=== PATIENT | female | born 1945 | race Caucasian/White ===

== ENCOUNTER → 2018-02-03 17:38 | Outpatient (CLI) | payer MEDICARE, SELFPAY ==
[2018-02-08 11:03] LABS: HPV HC, High Risk Negative (Negative)
== END ==
PROVIDERS: Visit Provider Obstetrics & Gynecology
DX: Z12.4 Encounter for screening for malignant neoplasm of cervix (principal)
CPT/HCPCS: 87624; 88175; G0145

== ENCOUNTER → 2019-06-15 10:03 | Outpatient (CLI) | payer MEDICARE, SELFPAY ==
--- NOTE | 2019-06-15 10:19 | BD_ITS ---
STUDY: DUAL ENERGY X-RAY ABSORPTIOMETRY / DXA REASON FOR EXAM: Female, 74 years old. The patient is postmenopausal. Loss of height. TECHNIQUE: Bone Mineral Density (BMD) measurements of lumbar spine and bilateral hips were obtained. COMPARISON: None. FINDINGS: Lumbar Spine (L1-L4): g/cm2 (1.095) / T-score (-0.7) / Z-score (1.0) Findings are suggestive of normal bone density with a low fracture risk. Left Femur Total: g/cm2 (0.831) / T-score (-1.4) / Z-score (0.3) Left Femoral Neck: g/cm2 (0.699) / T-score (-2.4) / Z-score (-0.6) Right Femur Total: g/cm2 (0.885) / T-score (-1.0) / Z-score (0.7) Right Femoral Neck: g/cm2 (0.714) / T-score (-2.3) / Z-score (-0.5) BD/Dexa Bone Density Study IMPRESSION: The patient is considered osteopenic as outlined below according to World Koby Organization (WHO) criteria with a high fracture risk. Reference Information: The T-score is the number of standard deviations above or below the standard which is normal for young adults at their peak bone mineral density. The World Health Organization (WHO) interprets the T-scores as follows: Above -1 Normal bone density Between -1 and -2.5 Osteopenia Equal to / or below -2.5 Osteoporosis As a practical clinical guideline, osteopenia may be graded as follows: Mild -1 through -1.5 Moderate -1.6 through -2.0 Severe -2.1 through -2.4 The Z-score is the number of standard deviations above or below age-matched controls. A Z-score of less than -1.5 would be considered abnormal. References: 1. NIH Osteoporosis and Related Bone Diseases http://www.osteo.org 2. International Society for Clinical Densitometry http://www.iscd.org 3. National Osteoporosis Foundation http://www.nof.org Electronically Signed: Thom Schmidt, at 13:31 EDT , Service support ,
== END ==
PROVIDERS: Family Provider Family Medicine; PCP Family Medicine; Referring Provider Family Medicine; Visit Provider Family Medicine
DX: Z78.0 Asymptomatic menopausal state (principal)
CPT/HCPCS: 77080

== ENCOUNTER → 2019-09-13 15:42 | Outpatient (CLI) | payer MEDICARE, SELFPAY ==
[2017-08-24 11:50] VITALS: BMI 39.3
[2019-09-13 17:55] LABS: Erythrocyte Sedimentation Rate 27 mm/hr (0-30)
[2019-09-13 18:09] LABS: Ferritin 266 ng/mL (8-252)
[2019-09-15 15:16] LABS: Anti-Smooth Muscle ABS 9 Units (0-19); Ceruloplasmin 28.2 mg/dL (19.0-39.0)
[2019-09-15 17:07] LABS: ANTINUCLEAR ANTIBODIES DIRECT Positive (Negative); Anti-Mitochondrial AB <20.0 Units (0.0-20.0)
== END ==
LOC: MTLAB 15:44
PROVIDERS: PCP Family Medicine; Referring Provider Internal Medicine Gastroenterology; Visit Provider Internal Medicine Gastroenterology
DX: K75.9 Inflammatory liver disease, unspecified (principal)
CPT/HCPCS: 36415; 82390; 82728; 83516; 85652; 86038

== ENCOUNTER → 2020-01-09 13:57 | Outpatient (CLI) | payer MEDICARE, MEDICAID, SELFPAY ==
[2017-08-24 11:50] VITALS: BMI 39.3
[2020-01-09 18:23] LABS: AST(SGOT) 118 U/L (15-37); Alanine Aminotransfer ALT/SGPT 134 U/L (13-56); Albumin, Serum 3.3 g/dL (3.2-5.0); Alkaline Phosphatase 104 U/L (45-117); Bilirubin, Direct 0.18 mg/dL (0.00-0.30); Protein, Total 7.3 g/dL (6.4-8.2)
[2020-01-09 18:28] LABS: Hemoglobin A1c 6.5 % (4.2-6.3); International Normalized Ratio 1.1; Partial Thromboplast Time 31.8 Seconds (24.1-36.2); Prothrombin Time (Protime)PT. 13.6 SECONDS (11.7-14.9)
[2020-01-11 08:46] LABS: AFP, Tumor Marker 3.8 ng/mL (0.0-8.3)
== END ==
PROVIDERS: PCP Family Medicine; Referring Provider Internal Medicine Gastroenterology; Visit Provider Internal Medicine Gastroenterology
DX: K74.0 Hepatic fibrosis (principal); K76.0 Fatty (change of) liver, not elsewhere classified
CPT/HCPCS: 36415; 80076; 82105; 83036; 85610; 85730

== ENCOUNTER → 2021-05-09 07:31 | Outpatient (CLI) | payer MEDICARE, MEDICAID, SELFPAY ==
--- NOTE | 2021-05-09 | BRBX_PTH ---
PATIENT: MANISHA MORA LOC: [facility] U#:[id number] AGE/SX: 80/F ROOM: RE05/09/[address]: Dr. Margarita Zafar MD : 1945 BED: DIS: SPEC #: [id number] RECD: 05/09/21 11:00 STATUS: ROHIT ROSHAN #: [id number] LINDSEY: 05/09/21 00:[address]: Margarita Zafar DEPT: SURGICAL PATHOLOGY RECD BY: Santos Saleh ENTERED: 05/09/21 11:00 SP TYPE: BREAST BX OT DR: Dr. Ag Sharpe MD Tissues: Right breast, NOS Procedures: Surgery Specimen Level IV HEADER OPERATION: Right stereotactic breast biopsy PRE-OP DIAGNOSIS: Right upper inner 1 o?clock breast microcalcifications TISSUE SUBMITTED: Right breast core tissue ISCHEMIC TIME: 1 minute FIXATION TIME: 12.5 hours MICROSCOPIC DIAGNOSIS Right breast, upper inner 1 o?clock microcalcifications, stereotactic core biopsy: Hyalinized fibroadenoma with focal calcifications. Negative for atypia or malignancy. See comment. NICK:joan 05/10/2021 COMMENT Correlation with clinical, radiologic findings and appropriate follow up are necessary. MICROSCOPIC DESCRIPTION Slides are reviewed. GROSS DESCRIPTION Received is one container labeled with the patient's name and not further designated. The specimen consists of multiple irregular fragments of yellow-zhou soft tissue mixed with blood clots that in aggregate measure 5 x 3 x 0.2 cm. The specimen is totally submitted in two cassettes. / AM:joan 05/09/21 TC:1 CPT: 86401
--- NOTE | 2021-05-09 13:02 | OP.PCM_ITS ---
Report of Operation Date of Procedure: 05/09/21 Pre-Operative Diagnosis: abnormal calcifications on right breast mammograms Post-Operative Diagnosis: same Surgery/Procedure Performed:: right breast stereotactic biopsy Description of Surgical Findings:: abnormal calcifications on right breast mammograms Surgeon: Margarita Zafar Type of Anesthesia: Local (1% xylocaine) Specimen's removed: right breast tissue Estimated Blood Loss (mL): < 5 ml Fluids Replaced: none Description of Procedure: After informed consent was given, the patient was brought into the Breast Biopsy suite. Appropriate time out protocol was followed. The patient was placed in the prone position on the stereotactic biopsy table. The patient?s right breast was then placed in the opening at the head of the biopsy table. A army helicopter pilot compression mammogram was then obtained in the CC view. The suspicious radiological lesion was thus identified. Stereo pictures of the lesion were then taken for XYZ coordinates. The Mammotome biopsy stylus was then positioned where it would be entering into the patient?s breast. The skin at this site was then cleansed with a surgical skin preparation. The skin and subcutaneous tissues at this site were then infiltrated with 1% xylocaine. A small skin incision was made with an 11 blade scalpel. The biopsy stylus was then positioned into the patient?s breast at the proper coordinates of depth. Using the Mammotome vacuum-assist device, several core samples of breast tissue were obtained. A specimen mammogram was the obtained. It revealed that the abnormal calcifications were within the specimen. I reviewed this personally and concluded that the tissue sampling was adequate. A hemostatic marker clip was then placed into the biopsy cavity and a army helicopter pilot film revealed that it was properly deployed. The patient was then placed in the supine position and pressure was applied to the breast until no active bleeding was noted. Steristrips were applied to reapproximate the skin. A unilateral mammogram in the CC and MLO view were then taken which revealed that the marker clip was in the same area as the previous suspicious lesion. The patient tolerated the procedure well and was discharged from the Breast Biopsy suite in good condition. Complications none noted
== END ==
PROVIDERS: PCP Internal Medicine; Referring Provider Surgery; Visit Provider Surgery
DX: D24.1 Benign neoplasm of right breast (principal); R92.8 Other abnormal and inconclusive findings on diagnostic imaging of breast; F41.9 Anxiety disorder, unspecified; F32.9 Major depressive disorder, single episode, unspecified; M81.0 Age-related osteoporosis without current pathological fracture; G47.33 Obstructive sleep apnea (adult) (pediatric); E11.42 Type 2 diabetes mellitus with diabetic polyneuropathy; E66.01 Morbid (severe) obesity due to excess calories; Z87.891 Personal history of nicotine dependence; Z68.42 Body mass index [BMI] 45.0-49.9, adult
CPT/HCPCS: 19081; 88305; A4648

== ENCOUNTER → 2023-11-03 | Outpatient (CLI) | payer MEDICARE, MEDICAID, SELFPAY ==
--- NOTE | 2023-11-03 11:50 | US_ITS ---
STUDY: RENAL ULTRASOUND - COMPLETE REASON FOR EXAM: Female, 78 years old. Flank pain, possible UTI TECHNIQUE: Ultrasound evaluation of the kidneys was performed with real-time and static larson-scale imaging. COMPARISON: None. FINDINGS: RIGHT KIDNEY: Normal location of the right kidney, which is normal in size. The right kidney measures 9.5 x 5.2 x 6.2 cm. There is a normal cortex of the right kidney. The renal cortex measures 1.7 cm. There is no right renal mass or cyst. There is a nonobstructing 1 cm stone There is no right hydronephrosis. DISTAL RIGHT URETER: There is non-visualization of the distal right ureter. There is no demonstrated right ureterovesical junction calculus. There is a visualized right ureteral jet. LEFT KIDNEY: Normal location of the left kidney, which is normal in size. The left kidney measures 9.9 x 5.4 x 5.0 cm. There is a normal cortex of the left kidney. The renal cortex measures 1.6 cm. There is no left renal mass or cyst. There are no left renal calculi. There is no left hydronephrosis. DISTAL LEFT URETER: There is non-visualization of the distal left ureter. There is no demonstrated left ureterovesical junction calculus. There is a visualized left ureteral jet. AORTA: There is no elongation or tortuosity of the abdominal aorta. I.V.C.: The IVC is patent. BLADDER: The bladder is sonographically normal with estimated capacity 191 mL US/Kidney and Bladder IMPRESSION: No suspicious sonographic findings, nonobstructing right nephrolithiasis Electronically Signed: Fabio Hernandez MD at 9:27 EDT ,
[2023-11-03 23:39] LABS: Bedside Glucose 111 mg/dL (74-106)
== END | disposition home or self-care (01) ==
PROVIDERS: PCP Internal Medicine; Referring Provider Urology; Visit Provider Urology
DX: N39.0 Urinary tract infection, site not specified (principal); R35.1 Nocturia; N39.46 Mixed incontinence
CPT/HCPCS: 76770; 82962

== ENCOUNTER → 2025-03-03 | Outpatient (CLI) | payer MEDICARE, MEDICAID, SELFPAY ==
--- NOTE | 2025-03-03 10:48 | MRI_ITS ---
PROCEDURE: LOWER EXT JOINT ONLY (ROUTINE) 03/03/2025 REASON FOR EXAM: CONTUSION OF LEFT HIP TECHNIQUE: LOWER EXT JOINT ONLY (ROUTINE) Multiplanar and multisequence images were obtained without IV contrast administration. COMPARISON: COMPARISON : None FINDINGS: No abnormal marrow signal or T1 linearity to suggest fracture. There is STIR hyperintensity throughout the visualized portions of the left psoas muscle. There is an ovoid T1/T2 hyperintense lesion near the insertion of the iliopsoas tendon measuring up to 2.8 cm longitudinally (series 10, image 12). Minimal left hip joint effusion. Visualized pelvic contents are unremarkable. There is a heterogeneous lesion in the deep soft tissues of the right hip, adjacent to the fascia, measuring up to 7.0 cm (series 10, image 21) which is incompletely imaged. Mild edema throughout the right hip soft tissues. MRI/Lower Ext Joint Only (Routine) IMPRESSION: 1. No evidence of pelvic fracture or significant contusion. 2. The left iliopsoas tendon is not well visualized, and there is an ovoid les ion near its insertion which may represent hematoma. Findings are suggestive of tendon tear (favor partial-thickness), co rrelate with physical exam. Additionally, there is edema within the visualized portions of the iliopsoas muscle body. 3. Heterogeneous lesion measuring up to 7.0 cm in the deep soft tissues of the right hip, possibly a [place] Jean lesion or hematoma. Reading Location: [id number]
[2025-03-03 11:20] VITALS: BP 143/63; PULSE 68; RESP 18; O2SAT 96
[2025-03-03 11:31] VITALS: BP 158/106; PULSE 84; O2SAT 90
[2025-03-03 11:42] VITALS: BP 137/60; PULSE 84; O2SAT 98
[2025-03-03 11:47] VITALS: BP 148/64; PULSE 81; O2SAT 97
[2025-03-03 11:57] VITALS: BP 158/84; PULSE 58; O2SAT 93
== END | disposition home or self-care (01) ==
PROVIDERS: PCP Student in an Organized Health Care Education/Training Program; Referring Provider Physician Assistant; Visit Provider Physician Assistant
DX: S70.02XA Contusion of left hip, initial encounter (principal)
CPT/HCPCS: 73721